=== PATIENT | female | born 1950 | race American Indian/Alaskan Native ===

== ENCOUNTER 2020-08-31 08:24 | Outpatient (CLI) | payer MEDICARE ==
--- NOTE | 2020-08-31 09:50 | Mammography Report ---
BILATERAL DIGITAL DIAGNOSTIC MAMMOGRAM WITH CAD CONVENTIONAL, 08/31/2020 RIGHT LIMITED BREAST ULTRASOUND CLINICAL INFORMATION / INDICATION: RT BREAST PAIN TECHNIQUE: Digital bilateral mammographic imaging was performed. Limited ultrasound was performed. Th is examination was interpreted with the benefit of Computer-Aided Detection (CAD) analysis. COMPARISON: None currently available. FINDINGS: Breast Density: The breasts are heterogeneously dense, which may obscure small masses. MAMMOGRAPHIC FINDINGS: No dominant mass, suspicious calcifications, or architectural distortion in ei ther breast. Right breast scarring superiorly is related to prior excisional biopsy. There is also a biopsy clip in the left upper outer quadrant. ULTRASOUND FINDINGS: Targeted ultrasound evaluation was performed of the area of interest. There is scarring at the 12:00 position at the site of prior excisional biopsy. No other abnormality is seen in the right breast at the site of the patient's breast pain. IMPRESSION: No mammographic or sonographic evidence of malignancy. Follow up recommendation: Routine yearly BI-RADS Category 2: Benign. A "normal" or negative report should not discourage follow up or biopsy of a clinically significant f inding. A written summary of these findings will be mailed to the patient. The patient will be entered into a mammography reporting system which will generate a reminder letter for the patient's next appointmen t at the appropriate interval. According to the [employer], yearly mammograms are recommended starting at age 40 and continuing as long as a woman is in good health. Breast MRI is recommended for women with an willie roximately 20-25% or greater lifetime risk of breast cancer, including women with a strong family his tory of breast or ovarian cancer and women who have been treated for Hodgkin's disease. Signer Name: Wayne Ahn MD Signed: 08/31/2020 9:45 AM Workstation Name: [id number]
== END 2020-08-31 08:25 | disposition home or self-care (01) ==
LOC: SPVWC 08:24
PROVIDERS: ATTEND Surgery
DX: N64.4 Mastodynia (principal); R92.8 Other abnormal and inconclusive findings on diagnostic imaging of breast
CPT/HCPCS: 77066